=== PATIENT | male | born 1950 | race Caucasian/White ===

== ENCOUNTER → 2017-08-18 | Outpatient (CLI) | payer BC | END | disposition home or self-care (01) | LOC: PCVCIMAG 09:21 | DX: I65.23 Occlusion and stenosis of bilateral carotid arteries (principal); I25.10 Atherosclerotic heart disease of native coronary artery without angina pectoris; E78.00 Pure hypercholesterolemia, unspecified; I44.7 Left bundle-branch block, unspecified; I77.9 Disorder of arteries and arterioles, unspecified; E04.2 Nontoxic multinodular goiter; Z95.0 Presence of cardiac pacemaker; Z87.891 Personal history of nicotine dependence; Z79.82 Long term (current) use of aspirin; Z79.899 Other long term (current) drug therapy | CPT/HCPCS: 93005; 93880; G0463 ==

== ENCOUNTER → 2018-03-22 | Outpatient (CLI) | payer BC ==
--- NOTE | 2018-03-22 10:15 | PCVCIMAG ---
EXAM: ULTRASOUND OF THE THYROID INDICATION: Thyroid nodules. FINDINGS: The right thyroid lobe measures 1.5 x 1.5 x 4.3 cm. The left thyroid lobe measures 1.0 x 1.4 x 3.9 cm. Heterogeneous echotexture throughout both thyroid lobes. There is a vague 0.4 x 0.5 x 0.7 cm hypoechoic nodule mid to lower left thyroid lobe of doubtful clinical significance. IMPRESSION: Thyroid within normal limits in size. Heterogeneous echotexture throughout both thyroid lobes with a 7 mm nodule mid to lower left thyroid lobe. LOC:[id number]
== END | disposition home or self-care (01) ==
LOC: PCVCIMAG 14:48
PROVIDERS: ATTEND Internal Medicine Cardiovascular Disease
DX: E04.1 Nontoxic single thyroid nodule (principal)
CPT/HCPCS: 76536

== ENCOUNTER → 2018-05-17 | Outpatient (CLI) | payer BC ==
--- NOTE | 2018-05-17 17:01 | PCVCIMAG ---
APPROVED REPORT Study performed: 05/17/2018 14:56:14 Exam: Stress Echocardiogram Indication: Hyperlipidemia, Hypertension, CAD s/p CABG Patient Location: Echo lab Stress Nurse: Shikha Estevez RN Status: routine Ht: 6 ft 0 in HR: 82 bpm BP: 130/80 mmHg Rhythm: NSR Medical History Medical History: HTN, Hyperlipidemia, Pacemaker, CABG Procedure The patient underwent an Exercise Stress Test using the Farzad Protocol. Blood pressure, heart rate, and EKG were monitored. An Echocardiogram was performed by equipment service technician in four stages in quad fashion. At peak stress, four selected images were obtained and placed side by side with resting images for comparison. Stress Test Details Stress Test: Exercise stress testing was performed using a Farzad protocol. HR Resting HR: 82 bpmMax Heart Rate (APMHR): 151 bpm Max HR Achieved: 146 bpmTarget HR (85% APMHR): 128 bpm % of APMHR: 96 HR response to stress: Normal HR response to stress BP Resting BP: 130/80 mmHg Max BP: 170/80 mmHg ECG Resting ECG: LBBB Stress ECG: LBBB Arrhythmia: VPC's Recovery ECG: LBBB Recovery ST Change: LBBB Clinical Reason for Termination: Maximal effort Exercise duration: 9 min 12 sec Highest Stage Achieved: Stage 4: 4.2 mph at 16% grade. Exercise capacity: 10.70 METs Overall Exercise Capacity for Age: Normal Pre-Stress Echo The resting Echocardiogram showed normal left ventricular contractility with an estimated Ejection Fraction of about 50-55%. Discordant septum due to LBBB Normal wall motion in all segments on baseline images. Post-Stress Echo The stress Echocardiogram showed normal left ventricular contractility with an estimated Ejection Fraction of about 55-60%. Discordant septum due to LBBB Normal augmentation of wall motion in all segments on post stress images. Clinical No clinical or ECG evidence for ischemia. Conclusion Clinical Response: Non-ischemic Exercise Capacity: Average Stress ECG Response: Non-ischemic Stress Echo Images: Non-ischemic The left ventricle is normal in size and wall thickness in both the rest and stress images. Other Information Study Quality: Adequate <Conclusion> The left ventricle is normal in size and wall thickness in both the rest and stress images.
== END | disposition home or self-care (01) ==
LOC: PCVCIMAG 14:29
PROVIDERS: ATTEND Internal Medicine Cardiovascular Disease
DX: I25.10 Atherosclerotic heart disease of native coronary artery without angina pectoris (principal); R06.09 Other forms of dyspnea; E78.5 Hyperlipidemia, unspecified; I10 Essential (primary) hypertension
CPT/HCPCS: 93325; 93351

== ENCOUNTER → 2019-03-14 | Outpatient (CLI) | payer BC ==
--- NOTE | 2019-03-14 17:04 | PCVCIMAG ---
APPROVED REPORT Laterality: Bilateral Indications Stenosis Surgery/Intervention Endarterectomy: right Doppler Spectral Velocity Analysis PSV / EDVPSV / EDV ECA (R) 106 / 16 cm/sECA (L) 118 / 19 cm/s dICA (R) 72 / 19 cm/sdICA (L) 75 / 22 cm/s [place] (R) 56 / 16 cm/smICA (L) 176 / 51 cm/s pICA (R) 89 / 13 cm/spICA (L) 174 / 46 cm/s Bulb (R) 62 / 10 cm/sBulb (L) 118 / 19 cm/s dCCA (R) 85 / 16 cm/sdCCA (L) 92 / 21 cm/s mCCA (R) 95 / 18 cm/smCCA (L) 102 / 23 cm/s Vert (R) 54 / 11 cm/sVert (L) 36 / 12 cm/s ICA/CCA 1.05 ICA/CCA 1.91 Findings The right carotid bulb has minimal plaque. The right proximal internal carotid artery shows no significant stenosis. The right common carotid artery shows no significant stenosis. The right external carotid artery shows no significant stenosis. The left carotid bulb has moderate plaque. The left proximal internal carotid artery shows 60-70% stenosis. The left common carotid artery shows no significant stenosis. The left external carotid artery shows no significant stenosis. Conclusion 1. Right internal carotid artery without significant stenosis; changes of carotid endarterectomy 2. Left internal carotid artery stenosis (60-70%) 3. Antegrade vertebral flow Similar to a study dated August 2017
== END | disposition home or self-care (01) ==
LOC: PCVCIMAG 14:48
PROVIDERS: ATTEND Internal Medicine Cardiovascular Disease
DX: I65.22 Occlusion and stenosis of left carotid artery (principal); E78.00 Pure hypercholesterolemia, unspecified; Z98.890 Other specified postprocedural states; Z87.891 Personal history of nicotine dependence
CPT/HCPCS: 93880